=== PATIENT | male | born 1985 | race Caucasian/White ===

== ENCOUNTER → 2018-01-30 | Outpatient (CLI) | payer BC ==
--- NOTE | 2018-01-30 09:46 | KCIC ---
MRI of the lumbar spine without contrast 01/30/2018 CLINICAL HISTORY: Low back pain for 15 years worsening over last week. TECHNIQUE: Unenhanced T1-weighted and T2-weighted sagittal and axial and inversion sagittal images of the lumbar spine were obtained. FINDINGS: Minimal S-shaped curvature of the thoracolumbar spine is seen. Degenerative signal changes and loss of height are seen involving the L2-3, L3-4, L4-5 and L5-S1 discs. Degenerative signal changes are seen within the marrow surrounding these discs. The conus medullaris is within normal limits in morphology, position, and signal characteristics. The L1-2 disc space is within normal limits. At the L2-3 disc space there is a mild generalized disc bulge. Superimposed on this disc bulge is a right paracentral/lateral focal disc protrusion. This measures 5 mm in AP diameter. Degenerative changes are seen involving the facet joints bilaterally. There is mild ligamentum flavum hypertrophy bilaterally. There is prominence of the posterior vertebral fat. These findings when combined do not result in significant central spinal canal stenosis. Mild right neural foraminal stenosis is seen. The left neural foramen is patent. At the L3-4 disc space there is a mild generalized disc bulge. Degenerative changes are seen involving the facet joints bilaterally. There is mild ligamentum flavum hypertrophy bilaterally. There is prominence of the posterior epidural fat. These findings when combined do not result in significant central spinal canal or neural foraminal stenosis. At the L4-5 disc space there is a mild generalized disc bulge. Superimposed on this disc bulge is a central/right paracentral focal disc protrusion. This measures 3 mm in AP diameter. Degenerative changes are seen involving the facet joints bilaterally. There is mild ligamentum flavum hypertrophy bilaterally. These findings when combined do not result in significant central spinal canal or neural foraminal stenosis. At the L5-S1 disc space there is a mild generalized disc bulge. Degenerative changes are seen involving the facet joints bilaterally. There is mild ligamentum flavum hypertrophy bilaterally. Superimposed on the disc bulge is a central/left paracentral focal disc herniation. This measures 4 mm in AP diameter. Degenerative changes are seen involving the facet joints bilaterally. There is mild ligamentum flavum hypertrophy bilaterally. These findings when combined result in mild left-sided central spinal canal stenosis. No neural foraminal stenosis is seen. Impression: The changes of degenerative disc disease are seen involving the lumbar spine. These findings result in mild left-sided central spinal canal stenosis at L5-S1. No neural foraminal stenosis is seen. Electronically signed by: Abner Walton MD (01/30/2018 9:43 AM) [id number]
== END | disposition home or self-care (01) ==
LOC: KCIC MRI 08:38
DX: M51.36 Other intervertebral disc degeneration, lumbar region (principal); M48.07 Spinal stenosis, lumbosacral region
CPT/HCPCS: 72148